=== PATIENT | female | born 1990 ===

== ENCOUNTER 2020-12-09 12:21 | Outpatient (CLI) | payer OTHER | END 2020-12-09 13:51 | disposition home or self-care (01) | LOC: OFIC 805 12:21 | PROVIDERS: ATTEND Otolaryngology Otology & Neurotology | DX: H69.02 Patulous Eustachian tube, left ear (principal); H93.8X2 Other specified disorders of left ear; H91.8X2 Other specified hearing loss, left ear ==

== ENCOUNTER 2021-01-16 20:48 | Outpatient (CLI) | payer OTHER | END 2021-01-17 12:29 | disposition home or self-care (01) | LOC: OBS/DEL 20:48 | PROVIDERS: ATTEND Obstetrics & Gynecology | DX: O47.1 False labor at or after 37 completed weeks of gestation (principal); Z3A.34 34 weeks gestation of pregnancy ==

== ENCOUNTER 2021-01-23 09:25 | Inpatient (IN) | payer OTHER ==
[~2021-01-23] VITALS: Ht 157.5 cm; Wt 61.2 kg
[2021-02-16] MEDS ORDERED: PRENATAL + DHA1 EAC1 PO (08:19)
[2021-02-18] MEDS ORDERED: INTEGRA PLUS C1 EACH PO (12:17)
[2021-02-18] MEDS ORDERED: VITAMIN C500 M6 PO (12:17)
== END 2021-02-18 12:56 | disposition home or self-care (01) | DRG 807 ==
LOC: SURH 09:25 → OB/GYN 02-15 07:57 → LDR 02-15 07:57 → OB/GYN 02-16 01:43
PROVIDERS: ADMIT Obstetrics & Gynecology; ATTEND Obstetrics & Gynecology
PROC: 10E0XZZ Delivery of Products of Conception, External Approach (ICD-10-PCS; principal; 2021-02-16)
PROC: 3E0P7VZ Introduction of Hormone into Female Reproductive, Via Natural or Artificial Opening (ICD-10-PCS; 2021-02-16)
PROC: 10907ZC Drainage of Amniotic Fluid, Therapeutic from Products of Conception, Via Natural or Artificial Opening (ICD-10-PCS; 2021-02-16)
PROC: 4A1HXFZ Monitoring of Products of Conception, Cardiac Rhythm, External Approach (ICD-10-PCS; 2021-02-16)
DX: O80 Encounter for full-term uncomplicated delivery (principal); Z37.0 Single live birth; Z3A.38 38 weeks gestation of pregnancy; Z20.822 Contact with and (suspected) exposure to COVID-19

== ENCOUNTER 2021-01-23 20:17 | Outpatient (CLI) | payer OTHER | END 2021-01-23 23:42 | disposition home or self-care (01) | LOC: OBS/DEL 20:17 → LDR 22:58 → OBS/DEL 23:42 | PROVIDERS: ATTEND Obstetrics & Gynecology | DX: O60.03 Preterm labor without delivery, third trimester (principal); Z3A.35 35 weeks gestation of pregnancy ==

== ENCOUNTER 2023-01-18 00:06 | Emergency (ER) | payer OTHER ==
[~2023-01-18] VITALS: Ht 152.4 cm; Wt 48.5 kg
[~2023-01-18 00:06] MED LIST: INTEGRA PLUS C1 EACH PO; PRENATAL + DHA1 EAC1 PO; VITAMIN C500 M6 PO
[2023-01-18] MEDS ORDERED: ONDANSETRON ODT4 MG PO (05:45)
== END 2023-01-18 05:54 ==
LOC: ER 00:06
DX: B34.9 Viral infection, unspecified (principal); R10.13 Epigastric pain; R10.11 Right upper quadrant pain; Z88.0 Allergy status to penicillin